=== PATIENT | female | born 1960 | race Two or more races ===

== ENCOUNTER 2017-01-05 07:43 | Day surgery (SDC) | payer BC ==
[~2017-01-05 07:43] MED LIST: ACET-704 PO; AMIT25TA PO; ATOR40TA59 PO; CETI10TA22 PO; DULA0.75 SQ; DULO30CA2 PO; HYDROmorphone 2 MG/ML VIAL IV PRN; INSU100C SQ; INSU100I13 SQ; IV RINGERS,LACTATED 1000ML 1,000 ML IV SCH; KRIL1CAP10 PO; LIDOCAINE 1% 1 ML SYRINGE. ID PRN; LOSA25TA4 PO; ONDANSETRON PF 4 MG/2 ML VIAL. IV PRN; PROCHLORPERAZINE 10 MG/2 ML VIAL. IV PRN; fentaNYL PF VIAL 100 MCG/2 ML VIAL IV PRN
[2017-01-05] MEDS ORDERED: PROPOFOL 20 ML IV ONE (08:36)
[2017-01-05] MEDS ORDERED: LIDOCAINE 2% PF Vial for OR 5 ML VIAL. ONE (08:36)
[2017-01-05] MEDS ORDERED: KETAMINE HCL 500 MG/10 ML VIAL. ONE (08:37)
[2017-01-05] MEDS ORDERED: MIDAZOLAM HCL/PF 2 MG/2 ML VIAL. ONE (08:37)
[2017-01-05] MEDS ORDERED: BUPIVACAINE MPF 0.5% 30 ML VIAL. ONE (10:30)
[2017-01-05] MEDS ORDERED: methylPREDNISolone ACETATE 40 MG/ML VIAL. ONE (10:31)
--- NOTE | 2017-01-05 11:20 | DISCH ---
DISCHARGE INSTRUCTIONS Condition on Discharge Condition on Discharge: Stable Activity After Discharge Activity Instructions for Disc: Other, see below Other activity instructions: immediate aggressive stretching of left shoulder no sling or support Diet after Discharge Diet after Discharge: Regular Wound Incision Care Wound/Incision Care: Ice to area for comfort Community/Resources/Services Services at Discharge: PT EVALUATE & TREAT Contacting the after DC Call your doctor for: Concerns you may have Follow-Up Follow up with: Lakia 7-10 days GISELA GOMES MD Jan 05, 2017 11:20
[2017-01-05] MEDS ORDERED: OXYC-327 PO (11:21)
[2017-01-05] MEDS ORDERED: fentaNYL PF VIAL 100 MCG/2 ML VIAL ONE ×2 (11:22→11:45)
[2017-01-05] MEDS: fentaNYL PF VIAL 100 MCG/2 ML VIAL IV PRN ×3 (11:26→11:50)
[2017-01-05] MEDS ORDERED: MORPHINE SULFATE 2 MG/ML DISP.SYRIN. ONE (11:34)
[2017-01-05] MEDS: MORPHINE SULFATE 2 MG/ML DISP.SYRIN. IV PRN ×2 (11:42→11:58)
[2017-01-05] MEDS ORDERED: INSULIN ASPART 100 UNIT/ML 10ML VIAL. SQ ONE ×2 (11:44→11:45)
[2017-01-05] MEDS ORDERED: oxyCODONE/APAP 7.5/325 1 TAB TABLET PO ONE (11:45)
[2017-01-05 12:28] VITALS: BP 129/61
--- NOTE | 2017-01-05 18:26 | PDOC4 ---
Operative Note Operative Note Date of surgery: 01/05/2017 Preoperative diagnosis: Left shoulder adhesive capsulitis Postoperative diagnosis: Same Procedure: Left shoulder manipulation under anesthesia with injection glenohumeral joint Surgeon: Lakia Anesthesia: Deep sedation provided by anesthesia Complications: None Operative indications: Patient is a 56-year-old female with left shoulder adhesive capsulitis. I had discussed the natural history of this condition with her she is been unresponsive to physical therapy and attempts at home stretching. We discussed the possibility of letting it run its course versus possible manipulation under anesthesia followed by physical therapy. She wishes to proceed with manipulation under anesthesia procedure as a result of her continued ongoing severe pain and limitations as well as lack of progress. All her questions were answered and consent was obtained. Operative text: Patient was identified procedure verified after timeout was performed and adequate amounts of deep sedation provided by anesthesia: The left shoulder was examined under anesthesia and found to have a block to further motion at a proximally 90 elevation and lacked terminal 80 of external rotation and abduction and terminal 30 of internal rotation. After manipulation with the audible and palpable release of tissue full range of motion was obtained in all planes with no instability. Under sterile conditions a total of 1 mL 80 mg/mm Depo-Medrol and 3 mL of half percent plain lidocaine were injected from an anterior approach into the glenohumeral joint. Patient was returned recovery room in stable condition having tolerated procedure well GISELA GOMES MD Jan 05, 2017 18:26
== END 2017-01-05 13:02 | disposition home or self-care (01) ==
LOC: SURG 07:43
PROVIDERS: ATTEND Orthopaedic Surgery
DX: M75.02 Adhesive capsulitis of left shoulder (principal); E78.00 Pure hypercholesterolemia, unspecified; I10 Essential (primary) hypertension; E66.9 Obesity, unspecified; Z68.43 Body mass index [BMI] 50.0-59.9, adult; M19.049 Primary osteoarthritis, unspecified hand; M17.10 Unilateral primary osteoarthritis, unspecified knee; E11.9 Type 2 diabetes mellitus without complications; F41.9 Anxiety disorder, unspecified; F32.9 Major depressive disorder, single episode, unspecified; Z86.39 Personal history of other endocrine, nutritional and metabolic disease; Z90.710 Acquired absence of both cervix and uterus; Z87.39 Personal history of other diseases of the musculoskeletal system and connective tissue
CPT/HCPCS: 20610; 23700; 82962; J1030; J2250; J2270; J2704; J3010; J3490; J1815; J2001

== ENCOUNTER 2017-02-20 07:37 | Day surgery (SDC) | payer BC ==
[~2017-02-20] VITALS: Ht 160 cm; Wt 73.0 kg
[~2017-02-20 07:37] MED LIST changes: -LIDOCAINE 1% 1 ML SYRINGE. ID PRN; +LIDOCAINE 1% PF 2 ML VIAL. ID PRN; +MORPHINE SULFATE 2 MG/ML DISP.SYRIN. IV PRN; +OXYC-327 PO
[2017-02-20] MEDS ORDERED: BUPIVACAINE 0.5% 50 ML VIAL. ONE (08:10)
[2017-02-20] MEDS ORDERED: EPINEPHrine VIAL 30 MG/30 ML VIAL ONE (08:10)
[2017-02-20] MEDS ORDERED: SUCCINYLCHOLINE 200 MG/10 ML VIAL. ONE (08:13)
[2017-02-20] MEDS ORDERED: ROCURONIUM 100 MG/10 ML VIAL. ONE (08:13)
[2017-02-20] MEDS ORDERED: LIDOCAINE 2% PF Vial for OR 5 ML VIAL. ONE (08:13)
[2017-02-20] MEDS ORDERED: PROPOFOL 20 ML IV ONE (08:13)
[2017-02-20] MEDS ORDERED: fentaNYL PF VIAL 100 MCG/2 ML VIAL ONE (08:14)
[2017-02-20] MEDS ORDERED: MIDAZOLAM HCL/PF 2 MG/2 ML VIAL. ONE ×2 (08:46→08:51)
[2017-02-20] MEDS ORDERED: ROPIVacaine 0.5% PF 30 ML VIAL. ONE (08:47)
[2017-02-20] MEDS ORDERED: DESFLURANE 61 TO 120 MINUTES IH ONE (10:11)
[2017-02-20] MEDS ORDERED: DEXAMETHASONE SOD PHOS 20 MG/5 ML VIAL. ONE (10:11)
[2017-02-20] MEDS ORDERED: ONDANSETRON PF 4 MG/2 ML VIAL. ONE (10:14)
--- NOTE | 2017-02-20 11:17 | DISCH ---
DISCHARGE INSTRUCTIONS Condition on Discharge Condition on Discharge: Stable Activity After Discharge Activity Instructions for Disc: Other, see below Other activity instructions: limit lifting to 5 pounds Diet after Discharge Diet after Discharge: Regular Wound Incision Care Wound/Incision Care: Ice to area for comfort, Change dressing Other wound/incision instructi: remove dressings 2 days may then shower Community/Resources/Services Services at Discharge: PT EVALUATE & TREAT (immediate physical therapy for active passive range of motion shoulder strengthening as tolerated limit elbow flexion to 5 pounds force, start GAYLE) Contacting the DR. after DC Call your doctor for: Concerns you may have Follow-Up Follow up with: Lakia 7-10 days GISELA GOMES MD Feb 20, 2017 11:17
[2017-02-20] MEDS ORDERED: OXYC-327 PO (11:18)
--- NOTE | 2017-02-20 11:28 | PDOC4 ---
Operative Note Operative Note Date of surgery: 02/20/2017 Preoperative diagnosis: Recurrent adhesive capsulitis, SLAP tear, acromioclavicular joint pain and impingement Postoperative diagnosis: Same Operative procedure: Left shoulder capsular release, biceps tenodesis, distal clavicle excision and subacromial decompression Surgeon: Lakia Anesthesia: Gen. endotracheal plus interscalene block Estimated blood loss: 25 mL Complications: None Operative indications: Patient is a 57-year-old female with previous adhesive capsulitis recurrent posterior previous manipulation and physical therapy. We had previously discussed the possibility of arthroscopic treatment as she had superior labral injury but opted for a manipulation under anesthesia at the time instead. At this time with recurrence we talked about addressing any underlying pathology including treatment of the SLAP tear with likely biceps tenodesis and decompression distal clavicle excision as needed and arthroscopic capsular release. We covered risks benefits postoperative course of the procedure and restrictions that would be specific to the procedure performed on the biceps. All her questions were answered she wants proceed with surgical evaluation and treatment consent having been obtained Operative text: Patient was identified procedure verified patient placed in the supine position on the operating table. After adequate amounts of general endotracheal anesthesia and a pre-existing scalene block were obtained to the left shoulder she was placed in the decubitus position left side up all point prominences were well-padded. After timeout was performed patient procedure identified and verified the shoulder was noted to have significant restriction to end range of motion specifically she lacked about the terminal 80 of external rotation terminal 70 elevation and about 20 internal rotation. The left shoulder was then prepped and draped in standard sterile fashion placed in the arthroscopic arm singh with a total of 10 pounds of traction and a standard posterior portal was established. An anterior portal established using spinal needle localization capsular release was carried out with electrocautery and the biceps tendon was examined and noted to have very significant irritation and some fraying and was involved in a superior labral tear. Biceps was released and tagged superior labrum was debrided back to stable tissue rotator cuff insertion was otherwise intact including the subscapularis glenohumeral joint surfaces were well-preserved. Subacromial space was then entered bursectomy was performed to allow visualization and decompression carried out to yield a type I acromion using cutting block technique distal clavicle was narrowed and arthritic and was excised 1 cm to allow adequate joint space. Bony fragments were removed with arthroscopic shaver bursal side of the rotator cuff was likewise intact biceps tenodesis was carried out through the anterior portal with a 7 mm biceptor [employer] anchor with the biceps under anatomic tension. Portals were closed with Monocryl subcutaneously sterile dressings were applied she was placed in a sling extubated transferred to postop holding in stable condition having tolerated procedure well GISELA GOMES MD Feb 20, 2017 11:28
[2017-02-20] MEDS ORDERED: INSULIN ASPART 100 UNIT/ML 10ML VIAL. SQ PRN (11:45)
[2017-02-20] MEDS ORDERED: INSULIN ASPART 100 UNIT/ML 10ML VIAL. SQ ONE (11:46)
[2017-02-20] MEDS ORDERED: oxyCODONE/APAP 7.5/325 1 TAB TABLET PO PRN (12:45)
[2017-02-20 13:15] VITALS: BP 133/73
== END 2017-02-20 13:37 | disposition home or self-care (01) ==
LOC: SURG 07:37
PROVIDERS: ATTEND Orthopaedic Surgery
DX: M75.02 Adhesive capsulitis of left shoulder (principal); S43.402A Unspecified sprain of left shoulder joint, initial encounter; X58.XXXA Exposure to other specified factors, initial encounter; Y93.89 Activity, other specified; Y92.89 Other specified places as the place of occurrence of the external cause; Y99.8 Other external cause status; M25.812 Other specified joint disorders, left shoulder; E78.00 Pure hypercholesterolemia, unspecified; I10 Essential (primary) hypertension; E66.9 Obesity, unspecified; F41.9 Anxiety disorder, unspecified; E11.9 Type 2 diabetes mellitus without complications; F32.9 Major depressive disorder, single episode, unspecified; Z87.39 Personal history of other diseases of the musculoskeletal system and connective tissue; Z90.710 Acquired absence of both cervix and uterus; Z68.28 Body mass index [BMI] 28.0-28.9, adult
CPT/HCPCS: 29824; 29825; 29826; 29828; 82962; C1713; J0171; J0330; J0690; J1100; J1815; J2250; J2405; J2704; J2795; J3010; J3490; J7120; J2001

== ENCOUNTER 2019-08-20 06:20 | Day surgery (SDC) | payer BC ==
[~2019-08-20 06:20] MED LIST changes: -CETI10TA22 PO; +CETI10TA24 PO; +EMPA10TA PO; +ERGO2000 PO; -HYDROmorphone 2 MG/ML VIAL IV PRN; +INDO25CA21 PO; -IV RINGERS,LACTATED 1000ML 1,000 ML IV SCH; -LIDOCAINE 1% PF 2 ML VIAL. ID PRN; -LOSA25TA4 PO; +LOSA25TA54 PO; -MORPHINE SULFATE 2 MG/ML DISP.SYRIN. IV PRN; +MULT-121 PO; -ONDANSETRON PF 4 MG/2 ML VIAL. IV PRN; -OXYC-327 PO; +OXYC1TAB19 PO; -PROCHLORPERAZINE 10 MG/2 ML VIAL. IV PRN; +SEMA1PEN SQ; -fentaNYL PF VIAL 100 MCG/2 ML VIAL IV PRN
[2019-08-20] MEDS ORDERED: INSULIN LISPRO 100 UNIT/ML 3ML VIAL for OP,RR ONLY. SQ PRN (06:45)
[2019-08-20] MEDS ORDERED: IV RINGERS,LACTATED 1000ML 1,000 ML IV SCH (06:51)
[2019-08-20] MEDS ORDERED: LIDOCAINE 1% PF 2 ML VIAL. ID PRN (07:00)
[2019-08-20] MEDS ORDERED: fentaNYL PF VIAL 100 MCG/2 ML VIAL IV PRN ×2 (07:00)
[2019-08-20] MEDS ORDERED: ONDANSETRON PF 4 MG/2 ML VIAL. IV PRN (07:00)
[2019-08-20] MEDS ORDERED: PROCHLORPERAZINE 10 MG/2 ML VIAL. IV PRN (07:00)
[2019-08-20] MEDS ORDERED: fentaNYL PF VIAL 100 MCG/2 ML VIAL ONE (07:09)
[2019-08-20] MEDS ORDERED: PROPOFOL 20 ML IV ONE (07:09)
[2019-08-20] MEDS ORDERED: BUPIVACAINE MPF 0.5% 30 ML VIAL. ONE (07:37)
[2019-08-20] MEDS ORDERED: BUPIVACAINE MPF 0.5% 30 ML VIAL. INJ ONE (07:45)
[2019-08-20] MEDS ORDERED: methylPREDNISolone ACETATE 80 MG/ML VIAL. INJ ONE (07:45)
[2019-08-20] MEDS ORDERED: methylPREDNISolone ACETATE 80 MG/ML VIAL. INT ART ONE (07:45)
[2019-08-20] MEDS ORDERED: HYDROcodone/APAP 7.5/325MG 1 TAB TABLET PO ONE (08:00)
[2019-08-20] MEDS: MORPHINE SULFATE 2 MG/ML VIAL. IV PRN ×2 (08:12→08:15)
[2019-08-20] MEDS: HYDROmorphone 2 MG/ML VIAL IV PRN ×4 (08:18→08:30)
[2019-08-20] MEDS ORDERED: HYDR-3165 PO (08:23)
--- NOTE | 2019-08-20 08:24 | DISCH ---
DISCHARGE INSTRUCTIONS Condition on Discharge Condition on Discharge: Stable Activity After Discharge Activity Instructions for Disc: Other, see below (immediate aggressive shoulder motion no restrictions) Diet after Discharge Diet after Discharge: Diabetic No Calorie Level Wound Incision Care Wound/Incision Care: Ice to area for comfort Contacting the after DC Call your doctor for: Concerns you may have Follow-Up Follow up with: Dr. Dorman 2 weeks GISELA DORMAN MD Aug 20, 2019 08:24
--- NOTE | 2019-08-20 08:30 | PDOC4 ---
Operative Note Operative Note Date of surgery: 08/20/2019 Preoperative diagnosis: Adhesive capsulitis right shoulder Postoperative diagnosis: Same with preoperative range of motion lacking about 60 degrees elevation and abduction 40 degrees terminal external rotation in abduction Operative procedure: Manipulation right shoulder under anesthesia Surgeon: Lakia Anesthesia: Deep propofol sedation provided by anesthesia Complications: None Injections: Right shoulder injected postmanipulation with 1 cc 80 mg/mL Depo- Medrol and 2 cc half percent plain Marcaine Indications: Patient is familiar to me from previous adhesive capsulitis on the contralateral shoulder and responded very well to manipulation and subsequent physical therapy. She has been struggling with the right shoulder for several months and has failed attempts to stretch anti-inflammatories activity modification and wishes to proceed with a manipulation on the right shoulder given her previous excellent relief on the left. All her questions were answered consent was obtained Operative text: Patient was identified procedure verified patient placed in the supine position on the recovery room cart and timeout was performed. After patient procedure identified and verified adequate amounts of propofol sedation were administered preoperative range of motion was observed to be lacking about 60 degrees terminal elevation and abduction and the terminal 40 degrees of external rotation and abduction. After audible and palpable release of tissues with the manipulation she regained full range of motion without instability. Under sterile conditions the right shoulder glenohumeral joint was then injected with 1 cc 80 mg/mL Depo-Medrol and 2 cc half percent plain Marcaine. A Band-Aid was applied and patient tolerated the procedure well and remained in recovery room for observation GISELA GOMES MD Aug 20, 2019 08:30
[2019-08-20 08:50] VITALS: BP 141/52
== END 2019-08-20 09:30 | disposition home or self-care (01) ==
LOC: SURG 06:20
PROVIDERS: ATTEND Orthopaedic Surgery
DX: M75.01 Adhesive capsulitis of right shoulder (principal); I10 Essential (primary) hypertension; E78.00 Pure hypercholesterolemia, unspecified; E11.9 Type 2 diabetes mellitus without complications; F41.9 Anxiety disorder, unspecified; F32.9 Major depressive disorder, single episode, unspecified; E66.9 Obesity, unspecified; Z68.29 Body mass index [BMI] 29.0-29.9, adult; Z87.01 Personal history of pneumonia (recurrent); Z87.39 Personal history of other diseases of the musculoskeletal system and connective tissue; Z79.899 Other long term (current) drug therapy; Z90.710 Acquired absence of both cervix and uterus; Z72.89 Other problems related to lifestyle; Z79.84 Long term (current) use of oral hypoglycemic drugs
CPT/HCPCS: 23700; 82962; J1040; J1170; J2270; J2704; J3010; J3490

== ENCOUNTER → 2020-02-23 | Outpatient (CLI) | payer BC ==
[~2020-02-23] MED LIST changes: -CETI10TA24 PO; +CETI10TA74 PO; +HYDR-3165 PO
--- NOTE | 2020-02-23 13:07 | RAD ---
STUDY: MRI of the right shoulder without contrast INDICATION: Right shoulder pain. COMPARISON: Right shoulder radiographs 07/28/2019 TECHNIQUE: Multiplanar MR imaging of the right shoulder performed without the use of intravenous or intra-articular contrast. FINDINGS: AC joint: Mild AC joint arthrosis. Mild edema-like signal and potential trace fluid within the subacromial subdeltoid bursa. Rotator cuff: Low grade, articular sided tear of the supraspinatus seen approximately 1.5 cm medial to the footprint and beginning just posterior to the leading edge. This involves up to around 30 percent tendon cross-sectional thickness with the region of involvement extending in the AP dimension by approximately 1 cm. Background mild supraspinatus tendinosis. Somewhat globular T2 signal elevation within the infraspinatus at the footprint favored on account of tendinosis as opposed to a tear. The teres minor is intact as is the subscapularis. No significant rotator cuff muscular atrophy/fatty infiltration. Labrum: Degenerative SLAP-type tear extending from superior to posterior/superior. Long head biceps tendon: Intact and normally located. Cartilage: No discrete chondral defect seen at the humeral head or glenoid. Bones: No acute fracture or aggressive marrow signal abnormality. Miscellaneous: Unremarkable axillary soft tissues. Small amount of shoulder joint fluid without a significant effusion. Impression: 1. As detailed in the body the report, low-grade articular sided tear of the supraspinatus occurring at the critical zone. Background mild supraspinatus and infraspinatus tendinosis. 2. Degenerative SLAP-type tear extending from superior to posterior/superior. Electronically signed by: JORDAN CHAPMAN MD (02/23/2020 1:04 PM) [id number]
== END ==
LOC: MRI 09:25
PROVIDERS: ATTEND Orthopaedic Surgery
DX: M19.011 Primary osteoarthritis, right shoulder (principal); M77.9 Enthesopathy, unspecified; M25.411 Effusion, right shoulder
CPT/HCPCS: 73221

== ENCOUNTER → 2020-04-20 | Outpatient (CLI) | payer BC ==
[~2020-04-20] MED LIST changes: +CRESTOR40 MG PO; +LOSA-73 PO; +OXYC-632 PO
== END ==
LOC: EDBD → LAB 12:45
PROVIDERS: ATTEND Orthopaedic Surgery
DX: Z01.812 Encounter for preprocedural laboratory examination (principal); Z20.828 Contact with and (suspected) exposure to other viral communicable diseases
CPT/HCPCS: U0003

== ENCOUNTER 2020-04-23 08:24 | Day surgery (SDC) | payer BC ==
[~2020-04-23] VITALS: Ht 160 cm; Wt 76.7 kg
[~2020-04-23 08:24] MED LIST changes: +HYDROmorphone 2 MG/ML VIAL IV PRN; +IV RINGERS,LACTATED 1000ML 1,000 ML IV SCH; +LIDOCAINE 1% PF 2 ML VIAL. ID PRN; +MORPHINE SULFATE 2 MG/ML VIAL. IV PRN; +ONDANSETRON PF 4 MG/2 ML VIAL. IV PRN; -OXYC-632 PO; +PROCHLORPERAZINE 10 MG/2 ML VIAL. IV PRN; +fentaNYL PF VIAL 100 MCG/2 ML VIAL IV PRN
[2020-04-23] MEDS ORDERED: INSULIN LISPRO 100 UNIT/ML 3ML VIAL for OP,RR ONLY. SQ PRN (09:00)
[2020-04-23] MEDS ORDERED: INSULIN LISPRO 100 UNIT/ML 3ML VIAL for OP,RR ONLY. SQ ONE (09:05)
[2020-04-23] MEDS ORDERED: MIDAZOLAM HCL/PF 2 MG/2 ML VIAL. ONE (09:49)
[2020-04-23] MEDS ORDERED: fentaNYL PF VIAL 100 MCG/2 ML VIAL ONE (09:49)
[2020-04-23] MEDS ORDERED: DEXAMETHASONE SOD PHOS 4 MG/ML VIAL ONE (09:49)
[2020-04-23] MEDS ORDERED: ROPIVacaine 0.5% PF 20 ML VIAL. ONE (09:52)
[2020-04-23] MEDS ORDERED: PROPOFOL 10 MG/ML (20ML) VIAL. IV ONE (11:09)
[2020-04-23] MEDS ORDERED: LIDOCAINE 2% PF 5 ML VIAL. ONE (11:09)
[2020-04-23] MEDS ORDERED: ROCURONIUM 50 MG/5 ML VIAL. ONE (11:11)
[2020-04-23] MEDS ORDERED: EPINEPHrine VIAL 30 MG/30 ML VIAL ONE (12:24)
[2020-04-23] MEDS ORDERED: ONDANSETRON PF 4 MG/2 ML VIAL. ONE (13:00)
[2020-04-23] MEDS ORDERED: GLYCOPYRROLATE 1 MG/5 ML VIAL. ONE (13:14)
[2020-04-23] MEDS ORDERED: NEOSTIGMINE METHYLSULFATE 5 MG/5 ML SYRINGE. ONE (13:14)
[2020-04-23] MEDS ORDERED: SEVOFLURANE > 120 MINUTES. IH ONE (13:26)
[2020-04-23] MEDS ORDERED: oxyCODONE/APAP 7.5/325 1 TAB TABLET PO ONE (13:45)
[2020-04-23] MEDS ORDERED: OXYC-632 PO (14:14)
--- NOTE | 2020-04-23 14:20 | DISCH ---
DISCHARGE INSTRUCTIONS Condition on Discharge Condition on Discharge: Stable Activity After Discharge Activity Instructions for Disc: Other, see below (Immediate aggressive stre tching for range of motion of right shoulder with no restrictions) Diet after Discharge Diet after Discharge: Diabetic No Calorie Level Wound Incision Care Wound/Incision Care: Ice to area for comfort Community/Resources/Services Services at Discharge: PT EVALUATE & TREAT (Immediate aggressive range of motion and would start physical therapy Sunday and stretch on your own every day multiple times a day to continue the motion regained) Contacting the DRAdryan after DC Call your doctor for: Concerns you may have Follow-Up Follow up with: Dr. Dorman 1 week GISELA DORMAN MD Apr 23, 2020 14:20
[2020-04-23 14:25] VITALS: BP 124/54
--- NOTE | 2020-04-23 15:51 | PDOC4 ---
Operative Note Operative Note Date of surgery: 04/23/2020 Preoperative diagnosis: Rotator cuff and labral tears and adhesive capsulitis right shoulder Postoperative diagnosis: Same except rotator cuff appeared intact Operative procedure: Right shoulder arthroscopy extensive labral debridement and capsular release Surgeon: Lakia Anesthesia: General plus scalene block Estimated blood loss: 10 cc Complications: None Operative indications: Najma has right shoulder pain unresponsive to nonoperative management and clinically has some findings of adhesive capsulitis and on MRI also had concerns for rotator cuff tear. I had gone over with her the possible operative treatments of arthroscopy possibility of labral debridement versus biceps tenodesis repair of rotator cuff if indicated and evaluation and treatment of her adhesive capsulitis depending on the extent. We had talked about the recovery process and the rationale for restrictions if indicated based on the procedures performed along with the possibility of infection nerve or blood vessel damage medical or other anesthetic complications among others all her questions were answered she wishes to proceed with surgical evaluation and treatment. Operative text: Patient was identified procedure verified patient placed in the supine position on operating table. After adequate amounts of general anest hesia were administered plus a pre-existing scalene block patient was placed in the decubitus position right side up all bony prominences were well-padded. In the right shoulder was examined under anesthesia and found to have lack of approximately 50 degrees of terminal elevation and abduction and external rotation. The right shoulder was then prepped and draped in standard sterile fashion placed in the arthroscopic arm singh with a total of 10 pounds of traction. After timeout was performed patient procedure identified and verified a standard posterior portal was established an anterior portal established using spinal needle localization and the shoulder joint was systematically examined. Glenohumeral cartilage was noted to be in overall good condition she had extensive labral tearing and synovitis but no compromise of the biceps anchor. Likewise the rotator cuff insertion including the subscapularis supraspinatus infraspinatus and a normal bare area of the humerus was noted with no compromise at its joint surface insertion. No subluxation of the biceps was noted. Extensive debridement of the labrum was carried out with arthroscopic shaver and bipolar electrocautery and a capsular release was carried out with bipolar wand. Subacromial evaluation showed no significant bursal sided rotator cuff compromise. The joint was drained of arthroscopic fluid and the shoulder was taken out of traction and manipulated and full range of motion gained in all planes with no instability. Portals were closed with nylon suture sterile dressings were applied patient was returned to recovery room in stable condition having tolerated procedure well GISELA GOMES MD Apr 23, 2020 15:51
== END 2020-04-23 15:00 | disposition home or self-care (01) ==
LOC: EDBD → SURG 08:24
PROVIDERS: ATTEND Orthopaedic Surgery
DX: M75.101 Unspecified rotator cuff tear or rupture of right shoulder, not specified as traumatic (principal); M75.01 Adhesive capsulitis of right shoulder; I10 Essential (primary) hypertension; E78.00 Pure hypercholesterolemia, unspecified; G47.30 Sleep apnea, unspecified; E66.9 Obesity, unspecified; E11.9 Type 2 diabetes mellitus without complications; F41.9 Anxiety disorder, unspecified; F32.9 Major depressive disorder, single episode, unspecified; M19.90 Unspecified osteoarthritis, unspecified site; Z90.710 Acquired absence of both cervix and uterus; Z98.890 Other specified postprocedural states; Z79.899 Other long term (current) drug therapy; Z79.4 Long term (current) use of insulin; Z72.89 Other problems related to lifestyle; Z68.29 Body mass index [BMI] 29.0-29.9, adult
CPT/HCPCS: 29823; 82962; A4565; C1713; J0171; J0690; J1100; J1815; J2250; J2405; J2704; J2710; J2795; J3010; J3490; J7120